=== PATIENT | female | born 1935 | race Native Hawaiian/Other Pacific Islander ===

== ENCOUNTER 2016-12-17 08:02 | Outpatient (CLI) | payer OTHER ==
[~2016-12-17 08:02] MED LIST: ADLT ASA LOW81 MG OR; AMLO10TA PO; ATEN50TA36 PO; BENA20TA2 PO; GLIP10TA55 PO; KETO10TA34 PO; LANTUS100 MG/ML SC; LOTENSIN40 MG PO; METF500T PO; SIMV10TA PO; TIROSINT25 MCG OR
== END 2016-12-17 09:05 | disposition home or self-care (01) ==
LOC: LABW 08:02
PROVIDERS: Nurse Practitioner Adult Health
DX: I25.10 Atherosclerotic heart disease of native coronary artery without angina pectoris (principal); E78.2 Mixed hyperlipidemia; Z79.899 Other long term (current) drug therapy; Z51.81 Encounter for therapeutic drug level monitoring
CPT/HCPCS: 36415; 80061; 80076

== ENCOUNTER 2017-01-27 07:46 | Outpatient (CLI) | payer OTHER ==
[2017-01-27 08:03] LABS: PLATELET COUNT 232 K/uL (152-353)
[2017-01-27 08:22] LABS: POTASSIUM 3.9 mmol/L (3.6-5.2)
== END 2017-01-27 08:50 | disposition home or self-care (01) ==
LOC: LABW 07:46
PROVIDERS: Internal Medicine
DX: E11.9 Type 2 diabetes mellitus without complications (principal)
CPT/HCPCS: 36415; 80053; 81000; 83036; 84443; 85027

== ENCOUNTER 2017-06-11 07:46 | Outpatient (CLI) | payer OTHER | END 2017-06-11 19:11 | disposition home or self-care (01) | LOC: LABW 07:46 | PROVIDERS: Nurse Practitioner Adult Health | DX: E78.2 Mixed hyperlipidemia (principal); Z79.899 Other long term (current) drug therapy; Z51.81 Encounter for therapeutic drug level monitoring | CPT/HCPCS: 36415; 80061; 80076 ==

== ENCOUNTER 2017-11-24 08:22 | Outpatient (CLI) | payer OTHER | END 2017-11-24 18:50 | disposition home or self-care (01) | LOC: LABW 08:22 | PROVIDERS: Nurse Practitioner Adult Health | DX: E78.2 Mixed hyperlipidemia (principal); Z79.899 Other long term (current) drug therapy | CPT/HCPCS: 36415; 80061; 80076 ==

== ENCOUNTER 2017-12-29 16:25 | Outpatient (CLI) | payer OTHER | END 2017-12-29 19:59 | disposition home or self-care (01) | LOC: LAB 16:25 | DX: T14.8XXA Other injury of unspecified body region, initial encounter (principal) | CPT/HCPCS: 87070; 87205 ==

== ENCOUNTER 2018-02-28 07:35 | Outpatient (CLI) | payer OTHER ==
[2018-02-28 08:25] LABS: PLATELET COUNT 255 K/uL (152-353)
[2018-02-28 08:50] LABS: POTASSIUM 3.8 mmol/L (3.6-5.2)
== END 2018-02-28 22:16 | disposition home or self-care (01) ==
LOC: LABW 07:35
PROVIDERS: Physician Assistant
DX: E11.9 Type 2 diabetes mellitus without complications (principal); I10 Essential (primary) hypertension; E03.9 Hypothyroidism, unspecified; E55.9 Vitamin D deficiency, unspecified
CPT/HCPCS: 36415; 80053; 80061; 82306; 83036; 84439; 84443; 85027

== ENCOUNTER 2018-07-29 08:39 | Outpatient (CLI) | payer OTHER | END 2018-07-29 19:10 | disposition home or self-care (01) | LOC: LABW 08:39 | PROVIDERS: Nurse Practitioner Adult Health | DX: I25.10 Atherosclerotic heart disease of native coronary artery without angina pectoris (principal); E78.2 Mixed hyperlipidemia; Z79.899 Other long term (current) drug therapy | CPT/HCPCS: 36415; 80061; 80076 ==

== ENCOUNTER 2019-02-01 07:46 | Outpatient (CLI) | payer OTHER | END 2019-02-01 19:26 | disposition home or self-care (01) | LOC: LABW 07:46 | PROVIDERS: Nurse Practitioner Adult Health | DX: E78.2 Mixed hyperlipidemia (principal); Z79.899 Other long term (current) drug therapy | CPT/HCPCS: 36415; 80061; 80076 ==

== ENCOUNTER 2019-04-24 08:48 | Outpatient (CLI) | payer OTHER ==
[2019-04-24 09:18] LABS: POTASSIUM 3.8 mmol/L (3.6-5.2)
[2019-04-24 09:42] LABS: PLATELET COUNT 200 K/uL (152-353)
== END 2019-04-24 19:13 | disposition home or self-care (01) ==
LOC: LABW 08:48
PROVIDERS: Internal Medicine
DX: E11.9 Type 2 diabetes mellitus without complications (principal)
CPT/HCPCS: 36415; 80053; 81000; 83036; 85027

== ENCOUNTER 2019-07-20 07:11 | Outpatient (CLI) | payer OTHER | END 2019-07-20 22:21 | disposition home or self-care (01) | LOC: LABW 07:11 | PROVIDERS: Specialist | DX: E78.2 Mixed hyperlipidemia (principal); Z79.899 Other long term (current) drug therapy | CPT/HCPCS: 36415; 80061; 80076 ==

== ENCOUNTER 2019-10-17 14:08 | Outpatient (CLI) | payer OTHER ==
[2019-10-17 14:45] LABS: PLATELET COUNT 195 K/uL (152-353)
[2019-10-17 17:06] LABS: POTASSIUM 4.7 mmol/L (3.6-5.2)
== END 2019-10-17 23:58 | disposition home or self-care (01) ==
LOC: LAB 14:08
PROVIDERS: Internal Medicine
DX: E11.9 Type 2 diabetes mellitus without complications (principal); I10 Essential (primary) hypertension; I25.10 Atherosclerotic heart disease of native coronary artery without angina pectoris; E03.8 Other specified hypothyroidism
CPT/HCPCS: 80053; 80061; 81000; 82043; 82570; 83036; 84439; 84443; 85027

== ENCOUNTER 2020-02-01 07:41 | Outpatient (CLI) | payer OTHER | END 2020-02-01 19:18 | disposition home or self-care (01) | LOC: MAMMO 07:41 | PROVIDERS: ATTEND Internal Medicine | DX: Z13.820 Encounter for screening for osteoporosis (principal); N95.8 Other specified menopausal and perimenopausal disorders ==

== ENCOUNTER 2020-03-19 07:26 | Outpatient (CLI) | payer OTHER ==
[2020-03-19 10:19] LABS: PLATELET COUNT 195 K/uL (152-353)
== END 2020-03-19 19:33 | disposition home or self-care (01) ==
LOC: LAB 07:26
PROVIDERS: ATTEND Internal Medicine
DX: U07.1 COVID-19 (principal); M79.10 Myalgia, unspecified site; Z11.59 Encounter for screening for other viral diseases
CPT/HCPCS: 36415; 85027; 87502; 87635; G2023; U0003

== ENCOUNTER 2020-04-09 08:06 | Outpatient (CLI) | payer OTHER | END 2020-04-09 19:28 | disposition home or self-care (01) | LOC: LABW 08:06 | PROVIDERS: ATTEND Nurse Practitioner | DX: E78.49 Other hyperlipidemia (principal); I25.10 Atherosclerotic heart disease of native coronary artery without angina pectoris | CPT/HCPCS: 36415; 80061; 80076 ==

== ENCOUNTER 2020-09-30 08:21 | Outpatient (CLI) | payer OTHER ==
[2020-09-30 20:00] LABS: LDL CHOLESTEROL 35.3 mg/dL (0-99*)
== END 2020-09-30 19:07 | disposition home or self-care (01) ==
LOC: LABW 08:21
PROVIDERS: ATTEND Nurse Practitioner Adult Health
DX: E78.49 Other hyperlipidemia (principal); Z79.899 Other long term (current) drug therapy
CPT/HCPCS: 36415; 80061; 80076

== ENCOUNTER 2021-01-24 14:18 | Outpatient (CLI) | payer OTHER ==
[2021-01-24 14:36] LABS: PLATELET COUNT 194 K/uL (152-353)
[2021-01-24 15:02] LABS: POTASSIUM 4.2 mmol/L (3.6-5.2)
== END 2021-01-24 19:04 | disposition home or self-care (01) ==
LOC: LAB 14:18
PROVIDERS: ATTEND Internal Medicine
DX: E11.9 Type 2 diabetes mellitus without complications (principal); I10 Essential (primary) hypertension; E03.8 Other specified hypothyroidism
CPT/HCPCS: 80053; 80061; 83036; 84439; 84443; 85027

== ENCOUNTER → 2021-01-27 | Outpatient (CLI) | payer OTHER | LOC: CT 12:48 | PROVIDERS: ATTEND Internal Medicine | DX: R41.82 Altered mental status, unspecified (principal) ==

== ENCOUNTER 2021-04-09 08:20 | Outpatient (CLI) | payer OTHER | END 2021-04-09 19:08 | disposition home or self-care (01) | LOC: LABW 08:20 | PROVIDERS: ATTEND Nurse Practitioner Adult Health | DX: E78.49 Other hyperlipidemia (principal); Z79.899 Other long term (current) drug therapy | CPT/HCPCS: 36415; 80061; 80076 ==

== ENCOUNTER 2021-06-04 10:31 | Emergency (ER) | payer OTHER ==
[~2021-06-04] VITALS: Ht 162.6 cm; Wt 63.0 kg
[2021-06-04 10:31] VITALS: TEMP 97.9
[2021-06-04 11:09] LABS: PLATELET COUNT 206 K/uL (152-353)
[2021-06-04 11:29] LABS: PARTIAL THROMBOPLASTIN TIME 22.4 SECONDS (24.5-33.6)
[2021-06-04 12:20] VITALS: BP 166/84
== END 2021-06-04 12:24 | disposition home or self-care (01) ==
LOC: ED 10:31
PROVIDERS: Hospitalist
DX: S22.32XA Fracture of one rib, left side, initial encounter for closed fracture (principal); F03.90 Unspecified dementia, unspecified severity, without behavioral disturbance, psychotic disturbance, mood disturbance, and anxiety; W18.39XA Other fall on same level, initial encounter; W54.1XXA Struck by dog, initial encounter; Y92.098 Other place in other non-institutional residence as the place of occurrence of the external cause
CPT/HCPCS: 80048; 80320; 85027; 85610; 85730; 96374; 99284; J1885

== ENCOUNTER 2021-10-16 08:01 | Outpatient (CLI) | payer OTHER | END 2021-10-16 19:26 | disposition home or self-care (01) | LOC: LABW 08:01 | PROVIDERS: ATTEND Nurse Practitioner Adult Health | DX: E78.49 Other hyperlipidemia (principal); I10 Essential (primary) hypertension; I25.10 Atherosclerotic heart disease of native coronary artery without angina pectoris; I34.1 Nonrheumatic mitral (valve) prolapse; I42.8 Other cardiomyopathies | CPT/HCPCS: 36415; 80061 ==

== ENCOUNTER 2021-10-21 11:26 | Outpatient (CLI) | payer OTHER | END 2021-10-21 18:50 | disposition home or self-care (01) | LOC: LABW 11:26 | PROVIDERS: ATTEND Nurse Practitioner Adult Health | DX: I10 Essential (primary) hypertension (principal); E78.2 Mixed hyperlipidemia | CPT/HCPCS: 36415; 80076 ==

== ENCOUNTER 2022-01-06 08:47 | Outpatient (CLI) | payer OTHER ==
[2022-01-06 09:34] LABS: POTASSIUM 4.1 mmol/L (3.6-5.2)
[2022-01-06 09:59] LABS: PLATELET COUNT 222 K/uL (152-353)
== END 2022-01-06 20:10 | disposition home or self-care (01) ==
LOC: LABW 08:47
PROVIDERS: ATTEND Internal Medicine
DX: E11.9 Type 2 diabetes mellitus without complications (principal); E03.8 Other specified hypothyroidism; R82.998 Other abnormal findings in urine
CPT/HCPCS: 36415; 80053; 80061; 81000; 83036; 84439; 84443; 85027; 87086; 87088

== ENCOUNTER 2022-06-12 08:05 | Outpatient (CLI) | payer OTHER ==
[2022-06-12 08:23] LABS: PLATELET COUNT 220 K/uL (152-353)
== END 2022-06-12 19:11 | disposition home or self-care (01) ==
LOC: LABW 08:05
PROVIDERS: ATTEND Internal Medicine
DX: E11.9 Type 2 diabetes mellitus without complications (principal); E03.8 Other specified hypothyroidism
CPT/HCPCS: 36415; 80053; 80061; 81000; 83036; 84439; 84443; 85027

== ENCOUNTER 2022-06-12 12:00 | Outpatient (CLI) | payer OTHER | END 2022-06-12 19:40 | disposition home or self-care (01) | LOC: MRI 12:00 | PROVIDERS: ATTEND Internal Medicine | DX: R41.82 Altered mental status, unspecified (principal); E11.9 Type 2 diabetes mellitus without complications; E03.8 Other specified hypothyroidism | CPT/HCPCS: 36415; 80053; 80061; 81000; 83036; 84439; 84443; 85027; A9576 ==

== ENCOUNTER 2022-07-28 16:02 | Inpatient (IN) | payer OTHER | END 2022-08-15 17:44 | disposition still patient (30) | LOC: PAVC 16:02 | PROVIDERS: ADMIT Internal Medicine; ATTEND Internal Medicine ==

== ENCOUNTER 2022-07-29 09:04 | Outpatient (CLI) | payer OTHER ==
[2022-07-29 09:46] LABS: PLATELET COUNT 194 K/uL (152-353)
[2022-07-29 10:06] LABS: POTASSIUM 4.6 mmol/L (3.6-5.2)
== END 2022-07-29 22:06 | disposition home or self-care (01) ==
LOC: LAB 09:04
PROVIDERS: ATTEND Internal Medicine
DX: I25.10 Atherosclerotic heart disease of native coronary artery without angina pectoris (principal); E03.8 Other specified hypothyroidism; I10 Essential (primary) hypertension; E11.9 Type 2 diabetes mellitus without complications
CPT/HCPCS: 80053; 80061; 83036; 84439; 84443; 85027; 87081